=== PATIENT | male | born 1970 | race Caucasian/White ===

== ENCOUNTER 2016-10-17 10:41 | Inpatient (IN) | payer OTHER ==
[~2016-10-17] VITALS: Ht 182.9 cm; Wt 131.5 kg
[~2016-10-17 10:41] MED LIST: ADVAIR 250/501 DISK IH; ALBUTEROL SULF8.5 GM IH; ALPRAZOLAM0.25 MG PO; ASCORBIC ACID250 MG PO; ASPIR-TRIN325 M1 PO; Aspirin E.C. PO; CEFTIN500 MG PO; CITRUCEL907 G1 PO; CLONAZEPAM1 MG PO; COUMADIN5 MG PO; COUMADIN7.5 MG PO; CYMBALTA60 MG PO; Colace PO; DELTASONE10 MG PO; DOCUSATE SODIU100 MG PO; DOLOPHINE HCL10 MG PO; Duragesic TD; FAMOTIDINE20 MG PO; FEROSUL325 MG PO; FERROUS SULFAT325 MG PO; FOLIC ACID1 MG PO; FUROSEMIDE20 MG PO; GABAPENTIN300 MG PO; IPRATR-ALBUTEROL3 ML IH; KLOR-CON M2020 MEQ PO; LOW DOSE ASPIRI81 M1 PO; METHADONE10 MG PO; METOPROLOL SUCC25 MG PO; Maalox, Mylanta PO; NEURONTIN600 MG PO; NICODERM CQ1 EAC2 TD; NICOTINE PATCH1 EAC1 TD; PEPCID20 MG PO; PERCOCET 10/1 TABLET PO; PERCOCET 7.51 TABLET PO; POLYETHYLENE GL17 GM PO; Percocet 5/325,Endoc PO; SENNA-TIME S T1 EACH PO; SPIRIVA1 INHALATI IH; SPIRONOLACTONE25 MG PO; THERAGRAN1 TABLET PO; TOPROL XL25 MG PO; TOPROL XL50 MG PO; TORSEMIDE20 MG PO; TUMS500 MG PO; TYLENOL EXTRA500 MG PO; TYLENOL REGULA325 MG PO; ULTRAM50 MG PO; VALIUM2 MG PO; VICODIN ES 7.51 EACH PO; XANAX2 MG PO; XOPENEX1.25 MG/0. IH; Xanax PO; ZANAFLEX2 MG PO
[2016-10-17 11:43] LABS: HEMATOCRIT 48.9 % (38.0-50.0); MCH 33.3 PG (29.0-34.0); MCHC 35.4 G/DL (30.0-36.0); MEAN PLAT.VOLUME 10.3 uM^3 (9.0-12.4); PLATELET COUNT 226 K/uL (156-360); RBC DIS.WIDTH-CV 13.7 % (11.8-14.6); RBC DIS.WIDTH-SD 45.4 % (39-53); WHITE BLOOD COUNT 11.6 K/uL (4.1-10.2)
[2016-10-17 11:53] LABS: D-DIMER ELISA 0.36 mg/L FEU (< 0.57)
[2016-10-17 11:55] LABS: CHLORIDE 107 mEq/L (99-109); POTASSIUM 3.6 mEq/L (3.7-5.4); SODIUM 143 mEq/L (136-147)
[2016-10-17 11:57] LABS: GLUCOSE 111 mg/dL (70-99)
[2016-10-17 11:58] LABS: ANION GAP 12 MEQ/L (2-14)
[2016-10-17 12:00] LABS: GFR ESTIMATE (CALCULATED) 47 mL/min/
[2016-10-17 12:01] LABS: UREA NITROGEN (BUN) 14 mg/dL (9-23)
[2016-10-17 12:11] LABS: TROP-I INTERPRETATION NEGATIVE; TROPONIN-I 0.02 ng/mL (0.0-0.30)
[2016-10-17 14:06] LABS: BASE EXCESS -2.3 mEq/L (-3 to +3); BICARBONATE 23.7 mEq/L (22-26); CARBOXY HGB 2.3 % (0-5); PCO2 44 mm Hg (35-45); PO2 59 mm Hg (80-100); SITE RR +A; pH 7.34 (7.35-7.45)
[2016-10-17 14:07] LABS: COMMENTS - BLOOD GASES +C; DEVICE HFNC; O2 FLOW 12 L/MIN; TOTAL RESP RATE 26 resp/min
[2016-10-17] MEDS ORDERED: ADVAIR 250/501 DISK IH (15:47)
[2016-10-17] MEDS ORDERED: XANAX1 MG PO (15:47)
[2016-10-17] MEDS ORDERED: SLEEP AID25 M2 PO (15:48)
[2016-10-17] MEDS ORDERED: PROAIR HFA8.5 GM IH (15:48)
[2016-10-17 17:22] VITALS: BP 106/64
[2016-10-17 19:05] LABS: TROP-I INTERPRETATION NEGATIVE; TROPONIN-I 0.22 ng/mL (0.0-0.30)
[2016-10-17 19:06] VITALS: BP 105/67
[2016-10-17 23:01] VITALS: BP 110/68
[2016-10-18] VITALS (7 sets, daily range): BP systolic 103–127; BP diastolic 65–84
[2016-10-18 01:01] LABS: TROP-I INTERPRETATION NEGATIVE; TROPONIN-I 0.12 ng/mL (0.0-0.30)
[2016-10-18 09:22] LABS: EOSINOPHIL (%) 0 % (0-5); HEMATOCRIT 46.3 % (38.0-50.0); IMMATURE GRANULOCYTE (%) 0.3 % (0.0-0.7); LYMPHOCYTE COUNT 0.7 K/uL (1.0-2.8); MCHC 34.6 G/DL (30.0-36.0); MEAN PLAT.VOLUME 10.7 uM^3 (9.0-12.4); MONOCYTE (%) 3.5 % (3-12); MONOCYTE COUNT 0.3 K/uL (0-0.8); NEUTROPHIL (%) 86.3 % (45-76); NEUTROPHIL COUNT 6.2 K/uL (1.8-6.4); PLATELET COUNT 172 K/uL (156-360); RBC DIS.WIDTH-CV 13.9 % (11.8-14.6); RBC DIS.WIDTH-SD 50.1 % (39-53)
[2016-10-18 09:28] LABS: MCV 98.5 FL (86-99); WHITE BLOOD COUNT 7.2 K/uL (4.1-10.2)
[2016-10-18 09:43] LABS: ANION GAP 13 MEQ/L (2-14); CHLORIDE 105 MEQ/L (99-109); GFR ESTIMATE (CALCULATED) > 59 mL/min/; GLUCOSE 151 mg/dL (70-99); MAGNESIUM 1.7 mg/dl (1.3-2.7); SAMPLE HEMOLYSIS CHECK 0; SAMPLE ICTERIC CHECK 0; SAMPLE LIPEMIA CHECK 0; SODIUM 138 MEQ/L (136-147); UREA NITROGEN (BUN) 19 mg/dL (9-23)
[2016-10-18 23:39] LABS: TROP-I INTERPRETATION NEGATIVE; TROPONIN-I 0.05 ng/mL (0.0-0.30)
[2016-10-19 05:00] VITALS: BP 100/50
[2016-10-19 06:02] LABS: EOSINOPHIL (%) 0 % (0-5); HEMATOCRIT 43.7 % (38.0-50.0); IMMATURE GRANULOCYTE (%) 0.2 % (0.0-0.7); LYMPHOCYTE COUNT 0.8 K/uL (1.0-2.8); MCH 33.5 PG (29.0-34.0); MCHC 34.1 G/DL (30.0-36.0); MCV 98.2 FL (86-99); MEAN PLAT.VOLUME 10.7 uM^3 (9.0-12.4); MONOCYTE (%) 3.9 % (3-12); MONOCYTE COUNT 0.6 K/uL (0-0.8); NEUTROPHIL (%) 90.1 % (45-76); NEUTROPHIL COUNT 12.8 K/uL (1.8-6.4); PLATELET COUNT 160 K/uL (156-360); RBC DIS.WIDTH-CV 13.9 % (11.8-14.6); RBC DIS.WIDTH-SD 50.2 % (39-53); RED BLOOD COUNT 4.45 M/uL (4.00-5.50)
[2016-10-19 06:04] LABS: WHITE BLOOD COUNT 14.3 K/uL (4.1-10.2)
[2016-10-19 06:11] LABS: TROP-I INTERPRETATION NEGATIVE; TROPONIN-I 0.04 ng/mL (0.0-0.30)
[2016-10-19 06:16] LABS: ANION GAP 8 MEQ/L (2-14); CHLORIDE 102 MEQ/L (99-109); GFR ESTIMATE (CALCULATED) > 59 mL/min/; GLUCOSE 146 mg/dL (70-99); MAGNESIUM 1.9 mg/dl (1.3-2.7); POTASSIUM 4.8 MEQ/L (3.7-5.4); SAMPLE HEMOLYSIS CHECK 0; SAMPLE ICTERIC CHECK 0; SAMPLE LIPEMIA CHECK 0; SODIUM 135 MEQ/L (136-147); UREA NITROGEN (BUN) 25 mg/dL (9-23)
[2016-10-19 08:16] VITALS: BP 104/69
[2016-10-19 11:37] VITALS: BP 116/67
[2016-10-19 12:27] LABS: TROP-I INTERPRETATION NEGATIVE; TROPONIN-I 0.03 ng/mL (0.0-0.30)
[2016-10-19 16:06] VITALS: BP 130/74
[2016-10-19 19:19] VITALS: BP 137/62
[2016-10-19 22:39] VITALS: BP 124/66
[2016-10-20 04:33] VITALS: BP 109/64
[2016-10-20 06:59] LABS: EOSINOPHIL (%) 0 % (0-5); HEMATOCRIT 45.3 % (38.0-50.0); IMMATURE GRANULOCYTE (%) 0.1 % (0.0-0.7); LYMPHOCYTE COUNT 0.8 K/uL (1.0-2.8); MCH 33.2 PG (29.0-34.0); MCHC 33.8 G/DL (30.0-36.0); MCV 98.3 FL (86-99); MEAN PLAT.VOLUME 11.1 uM^3 (9.0-12.4); MONOCYTE (%) 4.7 % (3-12); MONOCYTE COUNT 0.7 K/uL (0-0.8); NEUTROPHIL (%) 89.7 % (45-76); NEUTROPHIL COUNT 13.4 K/uL (1.8-6.4); PLATELET COUNT 169 K/uL (156-360); RBC DIS.WIDTH-CV 13.8 % (11.8-14.6); RBC DIS.WIDTH-SD 49.3 % (39-53); RED BLOOD COUNT 4.61 M/uL (4.00-5.50); WHITE BLOOD COUNT 14.9 K/uL (4.1-10.2)
[2016-10-20 07:25] LABS: ANION GAP 9 MEQ/L (2-14); CHLORIDE 105 MEQ/L (99-109); GFR ESTIMATE (CALCULATED) > 59 mL/min/; GLUCOSE 135 mg/dL (70-99); MAGNESIUM 1.9 mg/dl (1.3-2.7); POTASSIUM 4.3 MEQ/L (3.7-5.4); SAMPLE HEMOLYSIS CHECK 0; SAMPLE ICTERIC CHECK 0; SAMPLE LIPEMIA CHECK 0; SODIUM 137 MEQ/L (136-147); UREA NITROGEN (BUN) 36 mg/dL (9-23)
[2016-10-20 07:59] VITALS: BP 114/67
[2016-10-20 11:33] VITALS: BP 122/79
[2016-10-20 15:53] VITALS: BP 120/74
[2016-10-20 19:55] VITALS: BP 110/66
[2016-10-20 23:50] VITALS: BP 111/55
[2016-10-21 04:04] VITALS: BP 92/53
[2016-10-21 07:00] LABS: HEMATOCRIT 44.2 % (38.0-50.0); MCH 33.5 PG (29.0-34.0); MCHC 34.6 G/DL (30.0-36.0); MCV 96.7 FL (86-99); PLATELET COUNT 160 K/uL (156-360); RBC DIS.WIDTH-CV 13.7 % (11.8-14.6); RBC DIS.WIDTH-SD 48.6 % (39-53); RED BLOOD COUNT 4.57 M/uL (4.00-5.50)
[2016-10-21 07:08] LABS: EOSINOPHIL (%) 0 % (0-5); IMMATURE GRANULOCYTE (%) 0.2 % (0.0-0.7); LYMPHOCYTE COUNT 0.9 K/uL (1.0-2.8); MONOCYTE (%) 8.5 % (3-12); MONOCYTE COUNT 1.1 K/uL (0-0.8); NEUTROPHIL (%) 84.3 % (45-76); NEUTROPHIL COUNT 10.9 K/uL (1.8-6.4)
[2016-10-21 07:32] LABS: ANION GAP 8 MEQ/L (2-14); CHLORIDE 105 MEQ/L (99-109); GFR ESTIMATE (CALCULATED) > 59 mL/min/; GLUCOSE 132 mg/dL (70-99); MAGNESIUM 1.9 mg/dl (1.3-2.7); SAMPLE HEMOLYSIS CHECK 0; SAMPLE ICTERIC CHECK 0; SAMPLE LIPEMIA CHECK 0; SODIUM 137 MEQ/L (136-147); UREA NITROGEN (BUN) 35 mg/dL (9-23)
[2016-10-21 07:52] VITALS: BP 112/72
[2016-10-21 11:44] VITALS: BP 107/58
[2016-10-21 15:31] VITALS: BP 111/65
[2016-10-21 20:00] VITALS: BP 103/71
[2016-10-21 23:31] VITALS: BP 114/66
[2016-10-22 07:00] VITALS: BP 113/69
[2016-10-22 11:10] VITALS: BP 122/78
[2016-10-22 12:03] LABS: ANION GAP 9 MEQ/L (2-14); CHLORIDE 105 MEQ/L (99-109); GFR ESTIMATE (CALCULATED) > 59 mL/min/; GLUCOSE 102 mg/dL (70-99); POTASSIUM 3.9 MEQ/L (3.7-5.4); SAMPLE HEMOLYSIS CHECK 0; SAMPLE ICTERIC CHECK 0; SAMPLE LIPEMIA CHECK 0; SODIUM 141 MEQ/L (136-147); UREA NITROGEN (BUN) 36 mg/dL (9-23)
[2016-10-22 15:00] VITALS: BP 120/71
[2016-10-22 20:00] VITALS: BP 125/67
[2016-10-22 23:59] VITALS: BP 119/67
[2016-10-23] MEDS ORDERED: ZOLPIDEM TARTRAT5 MG PO (01:38)
[2016-10-23] MEDS ORDERED: CEFTIN250 MG PO (01:38)
[2016-10-23] MEDS ORDERED: SOTALOL80 MG PO (01:38)
[2016-10-23] MEDS ORDERED: ASPIR-LOW81 MG PO (01:38)
[2016-10-23] MEDS ORDERED: PREDNISONE10 MG PO (01:38)
[2016-10-23] MEDS ORDERED: K-DUR10 MEQ PO (01:38)
[2016-10-23] MEDS ORDERED: HYDROMORPHONE HC4 MG PO (01:38)
[2016-10-23] MEDS ORDERED: DUONEB 2.5-0.5 M3 ML AEROSOL (01:38)
[2016-10-23 04:26] VITALS: BP 114/59
[2016-10-23 09:50] VITALS: BP 118/76
[2016-10-23 11:50] VITALS: BP 119/72
== END 2016-10-23 13:11 | disposition home health service (06) | DRG 190 ==
LOC: EME 10:41 → EDOF 15:00 → 4EAST 15:00
PROVIDERS: Emergency Medicine; Hospitalist; Internal Medicine; Internal Medicine Cardiovascular Disease
DX: J44.1 Chronic obstructive pulmonary disease with (acute) exacerbation (principal); I50.23 Acute on chronic systolic (congestive) heart failure; J96.01 Acute respiratory failure with hypoxia; I48.2 Chronic atrial fibrillation; N17.9 Acute kidney failure, unspecified; G47.33 Obstructive sleep apnea (adult) (pediatric); R07.89 Other chest pain; F17.210 Nicotine dependence, cigarettes, uncomplicated; E66.9 Obesity, unspecified; E86.0 Dehydration; Z68.35 Body mass index [BMI] 35.0-35.9, adult; I25.2 Old myocardial infarction; Z95.3 Presence of xenogenic heart valve; J20.9 Acute bronchitis, unspecified; J44.0 Chronic obstructive pulmonary disease with (acute) lower respiratory infection
CPT/HCPCS: 36600; 71010; 71020; 71275; 78582; 80048; 82803; 83735; 83880; 84484; 85025; 85027; 85379; 87070; 87205; 93005; 93306; 94640; 94640 76; 94760; 94799; 99202; 99281; 99285; A9539; A9540; J0153; J0282; J0692; J1170; J1650; J1885; J1940; J2270; J2405; J2920; J2930; J7030; J7050; J7512